=== PATIENT | female | born 1995 ===

== ENCOUNTER 2020-12-28 14:39 | Emergency (ER) | payer SELFPAY ==
--- NOTE | 2020-12-28 14:52 | W.ED.FU ---
Patient arrived in ambulance as part of modifying scene helicopter transport. In my capacity as district medical cash poster I went out to see if [facility] required additional resources. I confirmed that ground crew did not seek [facility] ED evaluation. No additional resources requested. They felt that patient would be best served at trauma center given high concern for intracranial traumatic injury. [facility] helicopter arrived immediately after ambulance arrival. I spoke with [facility] team and inquired if they felt patient needed emergent treatment in [facility] prior to flight - they declined and felt immeditate transport to tertiary care trauma center was necessary.
== END 2020-12-28 16:43 ==
PROVIDERS: Emergency Provider Student in an Organized Health Care Education/Training Program
DX: Z53.29 Procedure and treatment not carried out because of patient's decision for other reasons (principal)